=== PATIENT | male | born 1985 | race Caucasian/White ===

== ENCOUNTER 2016-08-17 08:22 | Emergency (ER) | payer MEDICAID ==
[2016-08-17 08:36] VITALS: BP 145/98; PULSE 63; RESP 18; TEMP 97.9; O2SAT 96
--- NOTE | 2016-08-17 08:44 | EDPHY ---
HPI/HX/ROS/PE/MDM Narrative: CHIEF COMPLAINT: Rash HPI: The patient is a 31-year-old male who denies any significant past medical history. He reports working with epoxy tile grout over the last few days, developing an itchy red rash to his bilateral arms and to the area behind his right ear. He denies shortness of breath or difficulty breathing. He has a history of similar reactions in the past to the same compound. REVIEW OF SYSTEMS: Aside from elements discussed in the HPI, a comprehensive 10-point review of systems was reviewed and is negative. PMH: None significant. No known history of allergy. SOCIAL HISTORY: Denies alcohol or drug abuse. PHYSICAL EXAM: General:Patient is alert, in no acute distress. ENT:Eyes are normal to inspection. ENT inspection normal. Neck: Normal inspection. Full range of motion. Respiratory:No respiratory distress. Breath sounds normal bilaterally. Cardiovascular: Regular rate and rhythm. Strong peripheral pulses. Normal cap refill. Skin: Small patchy areas of erythematous skin follicles are present on both forearms, primarily left forearm. There is no chantal urticaria. There is no sign of cellulitis. Neuro: Oriented x3. Normal motor function. Normal sensory function. MDM: This is a young healthy male who presents with what appears to be a mild folliculitis secondary to chemical irritation. I see no signs of cellulitis or anaphylaxis. I think the patient will benefit from course of hydrocortisone cream and 3 days of prednisone therapy. Discussed strict return precautions as well as importance of following up with a lead inspector. General Time Seen by Provider: 08/17/16 08:40 Initial Vital Signs: Initial Vital Signs Temperature (C) 36.6 C 08/17/16 08:34 Heart Rate 63 08/17/16 08:34 Respiratory Rate 18 08/17/16 08:34 Blood Pressure 145/98 H 08/17/16 08:34 O2 Sat (%) 96 08/17/16 08:34 O2 Delivery Mode Room Air Allergies/Adverse Reactions: No Known Allergies Allergy (Unverified 08/17/16 08:34) Home Medications: Medication Instructions Recorded predniSONE 60 mg PO DAILY 3 Days 08/17/16 Departure - Departure Disposition: Home, Routine, Self-Care Clinical Impression: Folliculitis, Rash Condition: Good Instructions: Folliculitis (ED) Additional Instructions: Avoid exposure to epoxy compounds. Buy and use [id number] hydrocortisone cream and use as directed on affected areas. Return to the ED for shortness of breath, fever or worsening rash. Follow-up with a lead inspector within one week. Prescriptions: predniSONE 60 mg PO DAILY 3 Days
== END 2016-08-17 08:49 | disposition home or self-care (01) ==
LOC: CED 08:22
DX: L73.9 Follicular disorder, unspecified (principal)